=== PATIENT | female | born 1990 | race African-American/Black ===

== ENCOUNTER 2019-02-21 17:12 | Emergency (ER) | payer MEDICARE, OTHER ==
[2019-02-21 17:25] VITALS: BP 129/84; PULSE 68; TEMP 98.6; BMI 33.2
[2019-02-21] MEDS ORDERED: IBUPROFEN 400 MG TABLET (FP) PO ONE ×2 (17:40→17:49)
[2019-02-21] MEDS ORDERED: LIDOCAINE VISCOUS 2% ORAL/TOP 20 ML UNIT-DOSE CUP MM ONE (17:40)
[2019-02-21] MEDS ORDERED: LIDOCAINE VISCOUS 2% ORAL/TOP 20 ML UNIT-DOSE CUP ONE (17:49)
--- NOTE | 2019-02-21 17:53 | PDOC ---
History of Present Illness - General Chief Complaint: Toothache Stated Complaint: TOOTHACHE Time Seen by Provider: 02/21/19 17:32 History Source: Patient Exam Limitations: No Limitations Past History - Past Medical History Allergies/Adverse Reactions: Allergies Allergy/AdvReac Type Severity Reaction Status Date / Time No Known Allergies Allergy Verified 02/21/19 17:24 COPD: No - Suicide/Smoking/Psychosocial Hx Smoking History: Never smoked *Physical Exam - Vital Signs Last Vital Signs Temp Pulse Resp BP Pulse Ox 98.6 F 68 18 129/84 99 02/21/19 17:23 02/21/19 17:23 02/21/19 17:23 02/21/19 17:23 02/21/19 17:23 - Physical Exam General Appearance: No: Apparent Distress HEENT: positive: Pharynx Normal (tooth #30 with prior filling noted, slight plaque, no cavities noted, no gum swelling, no evidence of abscess), Other ( tooth #30 with prior filling noted, slight plaque, no cavities noted, no gum swelling, no evidence of abscess) Respiratory/Chest: positive: Lungs Clear, Normal Breath Sounds. negative: Respiratory Distress Cardiovascular: positive: Regular Rhythm, Regular Rate, S1, S2. negative: Murmur Medical Decision Making - Medical Decision Making 29 y/o F with no sig pmh presents with R lower molar toothache since 2 days ago. Denies trauma, fever, sore throat, abd pain, n/v. Has been using Orajel without relief of pain. Tried Motrin 600 mg once yesterday, but states it did not help much No evidence of dental injury or abscess or gingivitis Plan: Motrin, Viscous lidocaine Stable for dc 02/21/19 17:51 *DC/Admit/Observation/Transfer Diagnosis at time of Disposition: Toothache - Discharge Dispostion Disposition: HOME Condition at time of disposition: Stable Decision to Admit order: No - Referrals - Patient Instructions Printed Discharge Instructions: DI for Dental Pain Additional Instructions: Thank you for choosing [facility]. It was a pleasure taking care of you. You may take Motrin 600 mg every 6 hours by mouth as needed for mild to moderate pain. Take Motrin with food. Please follow-up in dental clinic for further evaluation of your symptoms Return to the Emergency Department if your symptoms worsen or persist or have other concerning symptoms. - Post Discharge Activity
== END 2019-02-21 19:16 | disposition home or self-care (01) ==
LOC: JERFT 17:12
DX: K08.89 Other specified disorders of teeth and supporting structures (principal)
CPT/HCPCS: 99281-25

== ENCOUNTER 2019-05-16 22:00 | Emergency (ER) | payer SELFPAY ==
[2019-05-16 22:18] VITALS: TEMP 98.1; BMI 30.2
[2019-05-16] MEDS ORDERED: KETOROLAC TROMETHAMINE 30 MG/1 ML VIAL IVPUSH ONE (22:45)
--- NOTE | 2019-05-16 22:45 | PDOC ---
History of Present Illness - General Chief Complaint: Pain, Acute Stated Complaint: ABD/BACK PAIN Time Seen by Provider: 05/16/19 22:37 - History of Present Illness Initial Comments: 05/16/19 22:40 CHIEF COMPLAINT: epigastric pain HISTORY OF PRESENT ILLNESS: 29 yo F with no PMH presents to ED with epigastric pain radiating to back x 3 days. Patient states she has been having back pain x "1 month" but the abdominal pain started 3 days ago but has worsened each day. The abdominal pain improves after eating. Patient reports nausea but denies any vomiting or diarrhea. Patient states she rarely drinks alcohol and that her last alcoholic drink was January 31. Patient's last BM was yesterday and was normal. Patient denies any fevers or chills. Denies any urinary symptoms. No recent travel or sick contacts. PAST MEDICAL HISTORY: Denies past medical history FAMILY HISTORY: mother had cholecystectomy SOCIAL HISTORY: Denies tobacco, alcohol, illicit drug use. SURGICAL HISTORY: Denies ALLERGIES: No known drug allergies REVIEW OF SYSTEMS General/Constitutional: Denies fever or chills. Denies weakness, weight change. HEENT: Denies change in vision. Denies ear pain or discharge. Denies sore throat. Cardiovascular: Denies chest pain or shortness of breath. Respiratory: Denies cough, wheezing, or hemoptysis. Gastrointestinal: Epigastric pain x 3 days. Denies vomiting, diarrhea or constipation. Denies rectal bleeding. Genitourinary: Denies dysuria, frequency, or change in urination. Musculoskeletal: Denies joint or muscle swelling or pain. Denies neck or back pain. Skin and breasts: Denies rash or easy bruising. Neurologic: Denies headache, vertigo, loss of consciousness, or loss of sensation. Psychiatric: Denies depression or anxiety. PHYSICAL EXAM General Appearance: Well-appearing, appropriately dressed. No apparent distress , no intoxication. HEENT: EOMI, PERRLA, normal ENT inspection, normal voice, TMs normal, pharynx normal. No conjunctival pallor. No photophobia, scleral icterus. Neck: Supple. Trachea midline. No tenderness, rigidity, carotid bruit, stridor , lymphadenopathy, or thyromegaly. Respiratory/Chest: Lungs CTAB. No shortness of breath, chest tenderness, respiratory distress, accessory muscle use. No crackles, rales, rhonchi, stridor , wheezing, dullness Cardiovascular: RRR. S1, S2. No JVD, murmur, bradycardia, tachycardia. Vascular Pulses: Dorsalis-Pedis (R): 2+, Dorsalis-Pedis (L): 2+ Gastrointestinal/Abdominal: Marked epigastric and RUQ tenderness. No organomegaly, pulsatile mass, guarding, hernia, hepatomegaly, splenomegaly. Lymphatic: No adenopathy, tenderness. Musculoskeletal/Extremities: Normal inspection. FROM of all extremities, normal capillary refill. Pelvis Stable. No CVA tenderness. No tenderness to extremities, pedal edema, swelling, erythema or deformity. Integumentary: Appropriate color, dry, warm. No cyanosis, erythema, jaundice or rash Neurologic: director of strategy & mobile II-XII intact. Fully oriented, alert. Appropriate mood/affect. Motor strength 5/5. No appreciable EOM palsy, facial droop or sensory deficit. Past History - Past Medical History Allergies/Adverse Reactions: Allergies Allergy/AdvReac Type Severity Reaction Status Date / Time No Known Allergies Allergy Verified 05/16/19 22:17 COPD: No - Suicide/Smoking/Psychosocial Hx Smoking History: Unknown if ever smoked *Physical Exam - Vital Signs Last Vital Signs Temp Pulse Resp BP Pulse Ox 98.1 F 88 18 116/77 100 05/16/19 22:17 05/16/19 22:17 05/16/19 22:17 05/16/19 22:17 05/16/19 22:17 Medical Decision Making - Medical Decision Making 05/16/19 22:45 29 yo F with no PMH presents to ED with epigastric pain radiating to back x 3 days. -labs, urine, CTAP -toradol for pain control 05/16/19 23:42 Case discussed in detail with resident MD Wilks including history, physical exam and ancillary studies. In brief, this patient is being seen in the ED for a chief complaint of: epigastric pain I have completed the initial assessment interview note and have ordered the following labs: cbc, cmp, lipase, urine I have reviewed the following results: nothing Pending results: labs, CTAP Plan for disposition as follows: pending MD Wilks has assumed care for the patient and will complete the evaluation and treatment.
[2019-05-17 00:21] LABS: HEMOGLOBIN 12.4 GM/dL (10.7-15.3); LYMPH % 24.9 % (8-40); MEAN CELL VOLUME 85.2 fl (80-96)
[2019-05-17 00:25] LABS: HYALINE CASTS 4 /lpf (0-8); URINE APPEARANCE CLOUDY; URINE BACTERIA 67.9 /hpf (NEGATIVE); URINE BILIRUBIN NEGATIVE (NEGATIVE); URINE COLOR YELLOW; URINE GLUCOSE (UA) NEGATIVE (NEGATIVE); URINE KETONE NEGATIVE (NEGATIVE); URINE LEUK ESTERASE TRACE (NEGATIVE); URINE NITRITE NEGATIVE (NEGATIVE); URINE PROTEIN NEGATIVE (NEGATIVE); URINE RBC 1 /hpf (0-4); URINE WBC 6 /hpf (0-5)
[2019-05-17 00:26] LABS: BASO % 0.6 % (0-2.0); HEMATOCRIT 37.8 % (32.4-45.2); MCH 27.9 pg (25.7-33.7); MCHC 32.7 g/dl (32.0-36.0); MEAN PLT VOLUME 9.7 fl (7.5-11.1); MONO % 6.8 % (3.8-10.2); NEUT % 66.7 % (42.8-82.8); PLATELET COUNT 258 K/MM3 (134-434); RBC 4.43 M/mm3 (3.60-5.2); RDW 13.9 % (11.6-15.6); WHITE BLOOD COUNT 7.9 K/mm3 (4.0-10.0)
[2019-05-17] MEDS ORDERED: KETOROLAC TROMETHAMINE 15 MG/ML VIAL ONE (00:32)
[2019-05-17 01:07] LABS: ALBUMIN 3.6 g/dl (3.4-5.0); BILIRUBIN,TOTAL 0.4 mg/dL (0.2-1); BLOOD UREA NITROGEN 8.9 mg/dL (7-18); POTASSIUM 3.8 mmol/L (3.5-5.1); TOT PROT 6.8 g/dl (6.4-8.2)
--- NOTE | 2019-05-17 02:40 | PDOC ---
*Physical Exam - Vital Signs Last Vital Signs Temp Pulse Resp BP Pulse Ox 98.1 F 88 18 116/77 100 05/16/19 22:17 05/16/19 22:17 05/16/19 22:17 05/16/19 22:17 05/16/19 22:17 ED Treatment Course - LABORATORY CBC & Chemistry Diagram: 05/17/19 00:00 05/17/19 00:00 - ADDITIONAL ORDERS Additional order review: Laboratory Results 05/17/19 05/17/19 05/17/19 00:00 00:00 00:00 Sodium Potassium Chloride Carbon Dioxide Anion Gap BUN Creatinine Est GFR (CKD-EPI)AfAm Est GFR (CKD-EPI)NonAf Random Glucose Calcium Total Bilirubin AST ALT Alkaline Phosphatase Total Protein Albumin Lipase 143 Urine Color Yellow Urine Appearance Cloudy Urine pH 6.0 Ur Specific Institute 1.015 Urine Protein Negative Urine Glucose (UA) Negative Urine Ketones Negative Urine Blood Negative Urine Nitrite Negative Urine Bilirubin Negative Urine Urobilinogen 1.0 Ur Leukocyte Esterase Trace Urine WBC (Auto) 6 Urine RBC (Auto) 1 Urine Casts (Auto) 4 U Epithel Cells (Auto) 7.0 Urine Bacteria (Auto) 67.9 Urine HCG, Qual Negative 05/17/19 00:00 Sodium 140 Potassium 3.8 Chloride 104 Carbon Dioxide 31 Anion Gap 5 L BUN 8.9 Creatinine 1.0 Est GFR (CKD-EPI)AfAm 87.55 Est GFR (CKD-EPI)NonAf 75.54 Random Glucose 93 Calcium 9.0 Total Bilirubin 0.4 AST 13 L ALT 17 Alkaline Phosphatase 61 Total Protein 6.8 Albumin 3.6 Lipase Urine Color Urine Appearance Urine pH Ur Specific Institute Urine Protein Urine Glucose (UA) Urine Ketones Urine Blood Urine Nitrite Urine Bilirubin Urine Urobilinogen Ur Leukocyte Esterase Urine WBC (Auto) Urine RBC (Auto) Urine Casts (Auto) U Epithel Cells (Auto) Urine Bacteria (Auto) Urine HCG, Qual 05/17/19 00:00 RBC 4.43 MCV 85.2 MCHC 32.7 RDW 13.9 MPV 9.7 Neutrophils % 66.7 Lymphocytes % 24.9 Monocytes % 6.8 Eosinophils % 1.0 Basophils % 0.6 - Medications Given in the ED: ED Medications Discontinued Medications Generic Name Dose Route Start Last Admin Trade Name Freq PRN Reason Stop Dose Admin Ketorolac Tromethamine 15 mg 05/16/19 22:45 05/17/19 00:40 Toradol Injection - IVPUSH 05/16/19 22:46 15 mg ONCE ONE Administration Medical Decision Making - Medical Decision Making 05/17/19 02:40 ct read: No bowel obstruction, colitis or free air. Normal appendix. Unremarkable stomach, liver, spleen, pancreas and kidneys Cholelithiasis Small physiologic free fluid cul-de-sac. 2.7 cm left ovarian cyst 05/17/19 02:46 ok to discharge with surgical referral. *DC/Admit/Observation/Transfer Diagnosis at time of Disposition: Biliary colic - Discharge Dispostion Disposition: HOME Condition at time of disposition: Improved Decision to Admit order: No - Referrals Referrals: Cheko Raymond MD [Staff Physician] - Jaiden Hawk MD [Staff Physician] - Thad Alberto MD [Staff Physician] - - Patient Instructions Printed Discharge Instructions: DI for Gallstones Additional Instructions: Follow up with one of the surgery providers listed within the week. Come back to the emergency department for any new, worsening or concerning symptom. - Post Discharge Activity
[2019-05-17 02:53] VITALS: BP 161/62; PULSE 79
== END 2019-05-17 02:53 | disposition home or self-care (01) ==
LOC: JER 22:00
PROC: 3E0333Z Introduction of Anti-inflammatory into Peripheral Vein, Percutaneous Approach (ICD-10-PCS; principal; 2019-05-16)
DX: K80.20 Calculus of gallbladder without cholecystitis without obstruction (principal); N83.202 Unspecified ovarian cyst, left side
CPT/HCPCS: 36415; 74177-TC; 80053; 81003; 83690; 84703; 85025; 87086; 99283-25

== ENCOUNTER 2020-03-28 05:32 | Emergency (ER) | payer OTHER ==
--- NOTE | 2020-03-28 05:44 | PDOC ---
History of Present Illness - General Stated Complaint: ABD PAIN,13 WKS - History of Present Illness Initial Comments: 03/28/20 06:08 30yo F and no other PMH p/w severe abdominal pain in the epigastric region that moves to the back. This started at 0100 an hour after intercourse and after eating [place] for dinner.The pain is intermittent and at its worst is 10/10. She has not taken anything for the pain. She has a history of gallstones. She did not followup after receiving the diagnosis. She underwent routine sonogram last week, and she reports it was normal. No allergies no meds ROS CONSTITUTIONAL: Absent: fever, chills, recent illness CARDIOVASCULAR: Absent: chest pain, syncope RESPIRATORY: Absent: cough, shortness of breath GASTROINTESTINAL: Absent: diarrhea, constipation, kGENITOURINARY: Absent: dysuria, frequency, urgency, hesitancy, hematuria, flank pain, genital pain MUSCULOSKELETAL: Absent: myalgia, arthralgia, joint swelling SKIN: Absent: rash, : reported LMP was 12/2019. Denies vaginal discharge or bleeding. NEUROLOGIC: Absent: headache, focal weakness or paresthesias, dizziness, unsteady gait, PSYCHIATRIC: Absent: anxiety, depression, suicidal or homicidal ideation, hallucinations. PE GENERAL: Well developed, well nourished. Awake and alert. in moderate distress due to the ABD pain HEENT: Normocephalic, atraumatic. PERRLA, EOMI. No conjunctival pallor. Sclera are non- icteric. Moist mucous membranes. Oropharynx is clear. NECK: Supple. Full ROM. No JVD. No thyromegaly. No lymphadenopathy. CARDIOVASCULAR: Regular rate and rhythm. No murmurs, rubs, or gallops. Distal pulses are 2+ and symmetric. PULMONARY: No evidence of respiratory distress. Lungs clear to auscultation bilaterally. No wheezing, rales or rhonchi. ABDOMINAL: Guarded in the epigastrum and RUQ. nontender and soft in the RLQ, hypogastrum, and LLQ. MUSCULOSKELETAL Normal range of motion at all joints. No bony deformities or tenderness. Diffuse mid-back tenderness to percussioin. EXTREMITIES: No cyanosis. SKIN: Warm and dry. Normal capillary refill. No rashes. No jaundice. NEUROLOGICAL: Alert, awake, appropriate. PSYCHIATRIC: Cooperative. Good eye contact. Appropriate mood and affect. Distressed because of the pain. : sonogram of belly showed + heart rate and + motion. a/p: 30yo F w/ h/o of gallstones and [place] for dinner and + p/w intermittent RUQ and epigastric pain. W/u for Gallstones/cholecystitis -> US study of RUQ, CMP, CBC, pain control. 03/28/20 06:19 03/28/20 06:23 03/28/20 06:39 03/28/20 06:44 Past History - Medical History Allergies/Adverse Reactions: Allergies Allergy/AdvReac Type Severity Reaction Status Date / Time No Known Allergies Allergy Verified 05/16/19 22:17 Home Medications: Ambulatory Orders NK [No Known Home Medication] 05/17/19 COPD: No - Psycho-Social/Smoking History Smoking History: Unknown if ever smoked ED Treatment Course - LABORATORY CBC & Chemistry Diagram: 03/28/20 06:00 03/28/20 06:00 Discharge - Discharge Information Problems reviewed: Yes Clinical Impression/Diagnosis: RUQ pain, Cholecystitis, Biliary colic Qualifiers: Weeks of gestation: 13 weeks Qualified Code(s): Z3A.13 - 13 weeks gestation of - Follow up/Referral - Patient Discharge Instructions - Post Discharge Activity
--- NOTE | 2020-03-28 05:45 | PDOC ---
Attending Attestation - Resident Resident Name: Haja Tellez - ED Attending Attestation I have performed the following: I have examined & evaluated the patient, The case was reviewed & discussed with the resident, I agree w/resident's findings & plan - HPI HPI: 03/28/20 06:25 see resident hpi - Physicial Exam PE: 03/28/20 06:25 see resident exam - Medical Decision Making 03/28/20 06:25 30-year-old female currently 13 weeks gestational age with upper abdominal pain radiating to the back several hours after eating [place] [employer] Bedside ultrasound confirms a live IUP and likely cholelithiasis We will sign out pending labs, formal ultrasound and reevaluation Discharge - Discharge Information Problems reviewed: Yes Clinical Impression/Diagnosis: RUQ pain, - Follow up/Referral - Patient Discharge Instructions - Post Discharge Activity
[2020-03-28 05:48] VITALS: BMI 33.4
[2020-03-28] MEDS ORDERED: morphine CARPU-JECT 4 MG/1 ML DISP.SYRIN IM ONE (05:56)
[2020-03-28] MEDS ORDERED: morphine SULFATE 4 MG/ML VIAL ONE (06:00)
[2020-03-28] MEDS ORDERED: LACTATED RINGERS SOLUTION 1000 ML INFUS.BAG IV ONE (06:01)
[2020-03-28] MEDS ORDERED: morphine CARPU-JECT 4 MG/1 ML DISP.SYRIN IVPUSH ONE (06:08)
[2020-03-28 06:30] LABS: BASO % 0.3 % (0-2.0); EOS % 0.5 % (0-4.5); HEMOGLOBIN 12.3 GM/dL (10.7-15.3); LYMPH % 19.2 % (8-40); MCH 27.5 pg (25.7-33.7); MCHC 33.3 g/dl (32.0-36.0); MEAN CELL VOLUME 82.5 fl (80-96); MEAN PLT VOLUME 9.4 fl (7.5-11.1); PLATELET COUNT 233 K/MM3 (134-434); RBC 4.49 M/mm3 (3.60-5.2); RDW 13.7 % (11.6-15.6); WHITE BLOOD COUNT 9.8 K/mm3 (4.0-10.0)
[2020-03-28] MEDS ORDERED: METOCLOPRAMIDE HCL 10 MG TABLET (FP) PO ONE ×2 (06:36→06:43)
[2020-03-28 06:42] LABS: INR 0.96 (0.83-1.09); PROTHROMBIN TIME (PATIENT) 11.3 SEC (9.7-13.0)
[2020-03-28 06:45] LABS: ACTIVATED PTT 29.2 SECONDS (25.2-36.5)
[2020-03-28 06:52] LABS: ALBUMIN 3.4 g/dl (3.4-5.0); BILIRUBIN,TOTAL 0.3 mg/dL (0.2-1); CALCIUM 9.1 mg/dL (8.5-10.1); CREATININE 0.8 mg/dL (0.55-1.3); POTASSIUM 3.8 mmol/L (3.5-5.1)
--- NOTE | 2020-03-28 07:12 | PDOC ---
*Physical Exam - Vital Signs Last Vital Signs Temp Pulse Resp BP Pulse Ox 98.2 F 88 20 133/81 100 03/28/20 05:43 03/28/20 05:43 03/28/20 05:43 03/28/20 05:43 03/28/20 05:43 - Physical Exam 03/28/20 20:48 GENERAL: Well developed, well nourished. Awake and alert. in no distress HEENT: Normocephalic, atraumatic. EOMI. No conjunctival pallor. Sclera are non- icteric. Moist mucous membranes. NECK: Supple. Full ROM. No JVD. No thyromegaly. No lymphadenopathy. CARDIOVASCULAR: Regular rate and rhythm. No murmurs, rubs, or gallops. Distal pulses are 2+ and symmetric. PULMONARY: No evidence of respiratory distress. Lungs clear to auscultation bilaterally. No wheezing, rales or rhonchi. ABDOMINAL: No tenderness to palpation in all four quadrants MUSCULOSKELETAL Normal range of motion at all joints. EXTREMITIES: No cyanosis. SKIN: Warm and dry. Normal capillary refill. No rashes. No jaundice. NEUROLOGICAL: Alert, awake, appropriate. PSYCHIATRIC: Cooperative. Good eye contact. Appropriate mood and affect. ED Treatment Course - LABORATORY CBC & Chemistry Diagram: 03/28/20 06:00 03/28/20 06:00 - ADDITIONAL ORDERS Additional order review: Laboratory Results 03/28/20 03/28/20 06:00 06:00 PT with INR 11.30 INR 0.96 PTT (Actin FS) 29.2 Sodium 137 Potassium 3.8 Chloride 105 Carbon Dioxide 24 Anion Gap 8 BUN 6.0 L Creatinine 0.8 Est GFR (CKD-EPI)AfAm 113.86 Est GFR (CKD-EPI)NonAf 98.24 Random Glucose 117 H Calcium 9.1 Total Bilirubin 0.3 AST 24 ALT 54 Alkaline Phosphatase 56 Total Protein 7.0 Albumin 3.4 03/28/20 06:00 RBC 4.49 MCV 82.5 MCHC 33.3 RDW 13.7 MPV 9.4 Neutrophils % 75.0 Lymphocytes % 19.2 D Monocytes % 5.0 Eosinophils % 0.5 Basophils % 0.3 - Medications Given in the ED: ED Medications Discontinued Medications Generic Name Dose Route Start Last Admin Trade Name Freq PRN Reason Stop Dose Admin Lactated Ringer's 1,000 ml 03/28/20 06:01 03/28/20 06:27 Lactated Ringers Solution IV 03/28/20 06:02 1,000 ml ONCE ONE Administration Metoclopramide HCl 10 mg 03/28/20 06:36 03/28/20 06:48 Reglan - PO 03/28/20 06:37 10 mg ONCE ONE Administration Morphine Sulfate 4 mg 03/28/20 05:56 03/28/20 06:27 Morphine Injection - IM 03/28/20 05:57 Not Given ONCE ONE Morphine Sulfate 4 mg 03/28/20 06:08 03/28/20 06:28 Morphine Injection - IVPUSH 03/28/20 06:09 4 mg ONCE ONE Administration Medical Decision Making - Medical Decision Making 03/28/20 07:10 30 yo female with pmh of gallstones 13 weeks presents to ED for RUQ pain after eating [place]. Pt received POCUS at bedside showed gallstone and baby was alive and kicking. Pt was given morphine, LR, and regalon. Pt went to get formal ultrasound waiting for read and dispo. Pt after ultrasound expressed felt alot better pain at 10. Ultrasound was read showing cholelithiasis and no blockage. Pt felt better, was able to tolerate PO challenge, and wanted to go home. Pt was discharged on strict return precaution to return to ED if pt had any fevers, chills, worsening abdominal pain, or unable to eat anything by mouth. Pt was told to follow up with OBGYN Dr. Serna (her obgyn) and surgery in the next few days. Pt was also told to take tylenol for pain and to eat low fat foods. Pt agreed to plan and was discharged. Discharge - Discharge Information Problems reviewed: Yes Clinical Impression/Diagnosis: RUQ pain, Cholecystitis, Biliary colic Qualifiers: Weeks of gestation: 13 weeks Qualified Code(s): Z3A.13 - 13 weeks gestation of Condition: Improved Disposition: HOME - Follow up/Referral Referrals: Olayinka Chaidez MD [Staff Physician] - - Patient Discharge Instructions Patient Printed Discharge Instructions: Gallstones Additional Instructions: You came to the ED for abdominal pain. This is most likely due to your gallstones. At the ED we did labs and imaging. The labs showed no acute abnormalities. The imaging showed some stones in your gallbladder but no inflammation or no blockage. In the ED we also gave you fluids, morphine, and antinausea medication. For this gallstones please follow up with surgery who we referred you to your OBGYN within one week. For the pain please take Tylenol 325-1000mg every 6 hours but no more than 4000 mg in 24 hours If you have any of the following symptoms please return: - worsening abdominal pain - fevers or chills - unable to eat anything by mouth - shortness of breath or chest pain If you have any emergent symptoms please call for medical help right away. - Post Discharge Activity
[2020-03-28 11:27] VITALS: BP 114/78; PULSE 69; TEMP 98.3
== END 2020-03-28 12:08 | disposition home or self-care (01) ==
LOC: JER 05:32
PROC: 3E033NZ Introduction of Analgesics, Hypnotics, Sedatives into Peripheral Vein, Percutaneous Approach (ICD-10-PCS; principal; 2020-03-28)
PROC: 3E0233Z Introduction of Anti-inflammatory into Muscle, Percutaneous Approach (ICD-10-PCS; 2020-03-28)
DX: O26.619 Liver and biliary tract disorders in pregnancy, unspecified trimester (principal); R10.11 Right upper quadrant pain; Z3A.13 13 weeks gestation of pregnancy
CPT/HCPCS: 36415; 76705-TC; 76801-TC; 80053; 83690; 84702; 85025; 85610; 85730; 86850; 86900; 86901; 99285-25; U0003

== ENCOUNTER 2020-06-09 13:54 | Emergency (ER) | payer OTHER ==
[2020-06-09 14:00] VITALS: BP 122/67; PULSE 98; TEMP 98.1; BMI 33.6
--- OUTSIDE RECORDS SUMMARY | 2020-06-09 14:14 | XMS ---
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 If such information is present, then the following federally mandated warning applies: This information has been disclosed to you from records protected by federal confidentiality rules (42 CFR part 2). The federal rules prohibit you from making any further disclosure of this information unless further disclosure is expressly permitted by the written consent of the person to whom it pertains or as otherwise permitted by 42 CFR part 2. A general authorization for the release of medical or other information is NOT sufficient for this purpose. The Federal rules restrict any use of the information to criminally investigate or prosecute any alcohol or drug abuse patient.The records that you are about to access may contain highly sensitive health information, the redisclosure of which is protected by Article 27-F of the [facility] Public Health law. If you continue you may haveaccess to information: Regarding HIV / AIDS; Provided by facilities licensed or operated by the [facility] Office of Mental Health; or Provided by the [facility] Office for People With Developmental Disabilities. If such information is present, then the following [facility] mandated warning applies: This information has been disclosed to you from confidential records which are protected by state law. State law prohibits you from making any further disclosure of this information without the specific written consent of the person to whom it pertains, or as otherwise permitted by law. Any unauthorized further disclosure in violation of state law may result in a fine or fpc sentence or both. A general authorization for the release of medical or other information is NOT sufficient authorization for further disclosure. Encounters Encounter Providers Location Date Indications Data Source(s ) Emergency H 05/17/2019 10:45:00 [facility] EDT - 05/17/2019 [place] 01:51:00 PM EDT Patient discharged. Insurance Providers Payer name Policy type Policy ID Covered Covered constitution party's Policy P judson / Coverage constitution party ID relationship to [employer] ormation type barrientos MARIELA [id number] SP [id number] HEALTH NON CAP SELF PAY SP INSURANCE MARIELA W [id number] MARIELA [id number] SP [id number] MEDICARE ADV PLAN Medicaid [id number] S [id number] Regular Clinic Visit HIP Medicaid [id number] S [id number] Managed Care Problems, Conditions, and Diagnoses Code Display Name Description Problem Type Effective Data Dates Source(s) K80.80 Other OTHER Diagnosis 05/17/2019 [facility] cholelithiasis CHOLELITHIASIS 10:45:00 AM Medic al without obstruction WITHOUT OBSTRUCTION EDT Center R10.9 Unspecified UNSPECIFIED Diagnosis 05/17/2019 [facility] abdominal pain ABDOMINAL PAIN 10:45:00 AM Medic al EDT Center Results ID Date Data Source [id number] 03/28/2020 06:45:00 AM EDT [facility] Name Value Range Interpretation Description Data Sup porting Code Source(s) Document(s ) SARS [facility] coronavirus 2 RNA This lab was ordered by [facility] and reported by [facility]. ID Date Data Source Liver 05/17/2019 11:25:00 AM EDT [facility] Profile.[id number] Name Value Range Interpretation Description Data Sup porting Code Source(s) Document(s ) Aspartate 14-36 <content [facility] aminotransferase styleCode="Bold"> [facility]uf[facility] hs [Enzymatic Aspartate Medical activity/volume] Aminotransferase Center in Serum or Plasma (AST) </content>22 IU/L<content styleCode="Italic s"> (14-36 IU/L)</content> Alanine 7-30 <content [facility] aminotransferase styleCode="Bold"> [facility] hs [Enzymatic Alanine Medical activity/volume] Aminotransferase Center in Serum or Plasma (ALT) </content>16 IU/L<content styleCode="Italic s"> (7-30 IU/L)</content> Bilirubin.total 0.2-1.3 <content [facility] [Mass/volume] in styleCode="Bold"> [facility] hs Serum or Plasma Bilirubin Total Medical </content>0.6 Center MG/DL<content styleCode="Italic s"> (0.2-1.3 MG/DL)</content> UNK 0.0-0.3 <content [facility] styleCode="Bold"> Tori Bilirubin, Direct Medical </content>< 0.2 Center MG/DL<content styleCode="Italic s"> (0.0-0.3 MG/DL)</content> Alkaline 38-126 <content [facility] phosphatase styleCode="Bold"> Tori [Enzymatic Alkaline Medical activity/volume] Phosphatase (ALP) Cente r in Serum or Plasma </content>61 IU/L<content styleCode="Italic s"> (38-126 IU/L)</content> Albumin 3.5-5.0 <content [facility] [Mass/volume] in styleCode="Bold"> Rufus hs Serum or Plasma Albumin Medical </content>4.1 Center G/DL<content styleCode="Italic s"> (3.5-5.0 G/DL)</content> ID Date Data Source GFR(Creatinine).[id number] 05/17/2019 11:25:00 AM EDT [facility] 0-0400 Name Value Range Interpretation Code Description Data Flory rce(s) Supporting Document(s ) UNK > 60 <content [facility] styleCode="Bold"> Medical Cent er EGFR </content>108 GFR<content styleCode="Italic s"> (> 60 GFR)</content> ID Date Data Source CHMROUTINECCDA.[id number] 05/17/2019 11:25:00 AM EDT [facility] -0400 Name Value Range Interpretation Description Data Sup porting Code Source(s) Document(s ) UNK 30-110 <content [facility] styleCode="Bold Medical ">Amylase Center </content>64 IU/L<content styleCode="Ital ics"> (30-110 IU/L)</content> Lipase 23-300 <content [facility] [Enzymatic styleCode="Bold Medical activity/vo ">Lipase Center lume] in </content>90 Serum or IU/L<content Plasma styleCode="Ital ics"> (23-300 IU/L)</content> ID Date Data Source [facility].[id number] 05/17/2019 11:25:00 AM EDT [facility] Name Value Range Interpretation Description Data Sup porting Code Source(s) Document(s ) UNK 7-17 <content [facility] styleCode="Bold"> Tori BUN </content>9 Medical MG/DL<content Center styleCode="Italic s"> (7-17 MG/DL)</content> Potassium 3.5-5.3 <content [facility] [Moles/volume] in styleCode="Bold"> [facility] Serum or Plasma Potassium Medical </content>4.0 Center MEQ/L<content styleCode="Italic s"> (3.5-5.3 MEQ/L)</content> Sodium 137-145 <content [facility] [Moles/volume] in styleCode="Bold"> [facility] Serum or Plasma Sodium Medical </content>141 Center MEQ/L<content styleCode="Italic s"> (137-145 MEQ/L)</content> Chloride 98-107 <content [facility] [Moles/volume] in styleCode="Bold"> [facility] Serum or Plasma Chloride Medical </content>104 Center MEQ/L<content styleCode="Italic s"> (98-107 MEQ/L)</content> Carbon dioxide, 22-30 <content [facility] total styleCode="Bold"> Tori [Moles/volume] in Carbon Dioxide Medical Serum or Plasma </content>28 Center MEQ/L<content styleCode="Italic s"> (22-30 MEQ/L)</content> Alanine 7-30 <content [facility] aminotransferase styleCode="Bold"> [facility] hs [Enzymatic Alanine Medical activity/volume] Aminotransferase Center in Serum or Plasma (ALT) </content>16 IU/L<content styleCode="Italic s"> (7-30 IU/L)</content> Calcium 8.4-10. <content [facility] [Mass/volume] in 2 styleCode="Bold"> [facility] hs Serum or Plasma Calcium Medical </content>9.8 Center MG/DL<content styleCode="Italic s"> (8.4-10.2 MG/DL)</content> Aspartate 14-36 <content [facility] aminotransferase styleCode="Bold"> [facility] hs [Enzymatic Aspartate Medical activity/volume] Aminotransferase Center in Serum or Plasma (AST) </content>22 IU/L<content styleCode="Italic s"> (14-36 IU/L)</content> UNK > 60 <content [facility] styleCode="Bold"> Tori EGFR Medical </content>108 Center GFR<content styleCode="Italic s"> (> 60 GFR)</content> Glucose 74-106 <content [facility] [Mass/volume] in styleCode="Bold"> [facility] hs Serum or Plasma Glucose Medical </content>104 Center MG/DL<content styleCode="Italic s"> (74-106 MG/DL)</content> Creatinine 0.5-1.3 <content [facility] [Mass/volume] in styleCode="Bold"> [facility] hs Serum or Plasma Creatinine Medical </content>0.8 Center MG/DL<content styleCode="Italic s"> (0.5-1.3 MG/DL)</content> Albumin 3.5-5.0 <content [facility] [Mass/volume] in styleCode="Bold"> [facility] hs Serum or Plasma Albumin Medical </content>4.1 Center G/DL<content styleCode="Italic s"> (3.5-5.0 G/DL)</content> Alkaline 38-126 <content [facility] phosphatase styleCode="Bold"> Tori [Enzymatic Alkaline Medical activity/volume] Phosphatase (ALP) Cente r in Serum or Plasma </content>61 IU/L<content styleCode="Italic s"> (38-126 IU/L)</content> Bilirubin.total 0.2-1.3 <content [facility] [Mass/volume] in styleCode="Bold"> [facility] hs Serum or Plasma Bilirubin Total Medical </content>0.6 Center MG/DL<content styleCode="Italic s"> (0.2-1.3 MG/DL)</content> Procedure Social History Code Duration Value Status Description Data Source(s ) Smoking 05/17/2019 11:08:00 AM Not Known [facility] 05/17/2019 10:53:00 AM Not Known [facility] Known [facility] Vital Signs ID Date Data Source UNK Name Value Range Interpretation Code Description Data Source(s) Body temperature [id number] 36.471897 [facility] Respiratory rate 20 /min 20 /min [facility] Oxygen saturation 98 % 98 % [facility] Jesús pittman in Arterial blood Medical Center by Pulse oximetry Heart rate 89 /min 89 /min [facility] Diastolic blood 63 mm[Hg] 63 mm[Hg] [facility] pressure Medical Center Systolic blood 105 mm[Hg] 105 mm[Hg] [facility] pressure [facility]
--- NOTE | 2020-06-09 14:26 | PDOC ---
History of Present Illness - General Chief Complaint: Injury Stated Complaint: INJURY Time Seen by Provider: 06/09/20 14:06 History Source: Patient Exam Limitations: Clinical Condition - History of Present Illness Initial Comments: 06/09/20 14:00 Patient with no significant past medical history present with complaint of laceration to left thumb to fingernail status post accidentally cutting left finger with a cooking knife after being distracted by her children. Patient reported has some mild bleeding to the area which she covered with bandage which has stopped bleeding. Reported last tetanus vaccine 5 years ago. Denies numbness or tingling sensation to fingers. Denies any other symptoms Timing/Duration: reports: just prior to arrival Past History - Medical History Allergies/Adverse Reactions: Allergies Allergy/AdvReac Type Severity Reaction Status Date / Time No Known Allergies Allergy Verified 06/09/20 13:57 Home Medications: Ambulatory Orders NK [No Known Home Medication] 05/17/19 COPD: No - Reproductive History Is Patient Now?: Yes (#): 4 Para: 1 Spontaneous : 2 - Immunization History Immunization Up to Date: Yes - Psycho-Social/Smoking History Smoking History: Never smoked Have you smoked in the past 12 months: No If you are a former smoker, when did you quit?: 2017 - Substance Abuse Hx (Audit-C & DAST Scrn) How often the patient has a drink containing alcohol: Never Score: In Men: 4 or > Positive; In Women: 3 or > Positive: 0 Screen Result (Pos requires Nsg. Audit-10AR): Negative In the last yr the pt used illegal drug/Rx for NonMed reason: No Score: Yes response is considered Positive: 0 Screen Result (Positive result requires Nsg. DAST-10): Negative Review of Systems - Review of Systems Able to Perform ROS?: Yes Is the patient limited Icelandic proficient: No Constitutional: No: Chills, Fever, Malaise HEENTM: No: Symptoms Reported Respiratory: No: Symptoms reported Cardiac (ROS): No: Symptoms Reported Musculoskeletal: Yes: Symptoms Reported, See HPI, Muscle Pain (pain to left thumb) Integumentary: Yes: Symptoms Reported, See HPI, Other (laceration to left thumb) Neurological: No: Numbness, Paresthesia, Tingling, Weakness All Other Systems: Reviewed and Negative *Physical Exam - Vital Signs Last Vital Signs Temp Pulse Resp BP Pulse Ox 98.1 F 98 H 18 122/67 98 06/09/20 13:57 06/09/20 13:57 06/09/20 13:57 06/09/20 13:57 06/09/20 13:57 - Physical Exam 06/09/20 15:03 GENERAL: Well developed, well nourished. Awake and alert. No acute distress. PULMONARY: No evidence of respiratory distress. MUSCULOSKELETAL : mild tenderness over distal phalange of the nailbed of left thumb. 5 out of 5 strength to the left thumb. Full range of motion of left thumb. No bony deformities SKIN: Warm and dry. Normal capillary refill. 2 mm superficial laceration to the nailbed on the medial side of left thumb with no active bleeding. Full range of motion left thumb. Normal strength of left thumb NEUROLOGICAL: Alert, awake, appropriate. No motor deficits in the lower extremities. Gait is normal without ataxia. PSYCHIATRIC: Cooperative. Good eye contact. Appropriate mood and affect. General Appearance: Yes: Nourished, Appropriately Dressed. No: Apparent Distress Medical Decision Making - Medical Decision Making 06/09/20 14:01 Patient with no significant past medical history present with complaint of laceration to left thumb to fingernail status post accidentally cutting left finger with a cooking knife after being distracted by her children. Patient reported has some mild bleeding to the area which she covered with bandage which has stopped bleeding. Reported last tetanus vaccine 5 years ago. Denies numbness or tingling sensation to fingers. Denies any other symptoms Exam significant for 2 mm superficial laceration to the nailbed on the medial side of left thumb with no active bleeding. Full range of motion left thumb. Normal strength of left thumb. Wound cleaned with Betadine and reinforced with Dermabond. Wound covered with adhesive bandage. Right thumb covered with tubular straight gauze to help protect finger. Patient stable for discharge with advised to do topical Neosporin or bacitracin to wound twice a day as needed and take Motrin as needed for pain with PCP follow-up Discharge - Discharge Information Problems reviewed: Yes Clinical Impression/Diagnosis: Laceration of left thumb with damage to nail Qualifiers: Encounter type: initial encounter Foreign body presence: without foreign body Qualified Code(s): S61.112A - Laceration without foreign body of left thumb with damage to nail, initial encounter Condition: Stable Disposition: HOME - Admission No - Follow up/Referral - Patient Discharge Instructions Patient Printed Discharge Instructions: DI for Laceration Repair-Skin Glue Additional Instructions: Keep wound dry and clean for the next 24 hours. Remove gauze from wound in 3 days and apply bacitracin or Neosporin to wound twice a day until fully healed. Take Motrin as needed for pain. Follow with your primary care as needed - Post Discharge Activity
== END 2020-06-09 14:29 | disposition home or self-care (01) ==
LOC: JERFT 13:54
DX: S61.112A Laceration without foreign body of left thumb with damage to nail, initial encounter (principal)
CPT/HCPCS: 99282-25

== ENCOUNTER 2020-09-25 07:10 | Inpatient (IN) | payer OTHER ==
[2020-09-25 08:58] LABS: BASO % 0.2 % (0-2.0); EOS % 0.9 % (0-4.5); HEMATOCRIT 35.4 % (32.4-45.2); HEMOGLOBIN 11.8 GM/dL (10.7-15.3); LYMPH % 22.4 % (8-40); MCH 27.4 pg (25.7-33.7); MCHC 33.5 g/dl (32.0-36.0); MEAN CELL VOLUME 81.9 fl (80-96); MEAN PLT VOLUME 9.3 fl (7.5-11.1); MONO % 8.7 % (3.8-10.2); NEUT % 67.8 % (42.8-82.8); PLATELET COUNT 231 K/MM3 (134-434); RBC 4.32 M/mm3 (3.60-5.2); WHITE BLOOD COUNT 6.6 K/mm3 (4.0-10.0)
[2020-09-25 09:13] LABS: POTASSIUM 3.8 mmol/L (3.5-5.1)
[2020-09-25 09:15] LABS: BLOOD UREA NITROGEN 5.3 mg/dL (7-18)
[2020-09-25 09:19] LABS: CREATININE 0.8 mg/dL (0.55-1.3); INR 0.93 (0.83-1.09); PROTHROMBIN TIME (PATIENT) 11.5 SEC (9.7-13.0)
[2020-09-25 09:21] LABS: ACTIVATED PTT 26.8 SECONDS (25.2-36.5)
[2020-09-25 09:36] VITALS: BMI 36.3
[2020-09-25] MEDS ORDERED: CITRIC ACID/SODIUM CITRATE 30 ML UNIT-DOSE CUP PO ONE (09:58)
[2020-09-25] MEDS ORDERED: ELECTROLYTE-148 SOLN 1,000 ML IV SCH (10:00)
[2020-09-25] MEDS ORDERED: ONDANSETRON 4 MG/2 ML VIAL IVPUSH PRN (10:23)
[2020-09-25] MEDS ORDERED: morphine SULFATE/PF 0.5 MG/ML (2cc Syringe - QUVA) ONE (10:42)
[2020-09-25] MEDS ORDERED: IBUPROFEN 600 MG TABLET (FP) PO PRN (11:33)
[2020-09-25] MEDS ORDERED: oxyCODONE HCL 5 MG TABLET PO PRN (11:33)
[2020-09-25] MEDS ORDERED: ACETAMINOPHEN 325 MG TABLET (FP) PO PRN (11:33)
[2020-09-25] MEDS ORDERED: METHYLERGONOVINE MALEATE 0.2 MG/1 ML AMP IM PRN (11:33)
[2020-09-25] MEDS ORDERED: IBUPROFEN 800 MG/8 ML IJ IVPB PRN (11:33)
[2020-09-25] MEDS ORDERED: OXYTOCIN 20 UNITS in 0.9% NS 20 UNIT/1,000 ML INFUS.BAG IV SCH (11:45)
[2020-09-25] MEDS: FERROUS SO4 325 MG TABLET (FP) PO SCH (18:39)
[2020-09-26 08:35] LABS: BASO % 0.9 % (0-2.0); EOS % 0.3 % (0-4.5); HEMATOCRIT 35.3 % (32.4-45.2); HEMOGLOBIN 11.6 GM/dL (10.7-15.3); LYMPH % 18.3 % (8-40); MCH 26.9 pg (25.7-33.7); MCHC 32.9 g/dl (32.0-36.0); MEAN CELL VOLUME 81.9 fl (80-96); MEAN PLT VOLUME 9.2 fl (7.5-11.1); MONO % 8.4 % (3.8-10.2); NEUT % 72.1 % (42.8-82.8); PLATELET COUNT 219 K/MM3 (134-434); RBC 4.31 M/mm3 (3.60-5.2); RDW 15.6 % (11.6-15.6); WHITE BLOOD COUNT 8.8 K/mm3 (4.0-10.0)
[2020-09-26] MEDS: FERROUS SO4 325 MG TABLET (FP) PO SCH ×2 (09:35→17:13)
[2020-09-26] MEDS: PRENATAL VITAMINS W/ FOLIC ACID TABLET (FP) PO SCH (09:35)
[2020-09-26] MEDS ORDERED: BISACODYL 10 MG SUPP.RECT RC PRN (11:33)
[2020-09-26] MEDS: ACETAMINOPHEN 325 MG TABLET (FP) PO PRN ×2 (12:00→22:10)
[2020-09-26] MEDS: IBUPROFEN 600 MG TABLET (FP) PO PRN ×2 (12:01→22:09)
[2020-09-26] MEDS: SIMETHICONE 80 MG TAB.CHEW (FP) PO PRN (22:09)
[2020-09-27] MEDS: SIMETHICONE 80 MG TAB.CHEW (FP) PO PRN (09:02)
[2020-09-27] MEDS: FERROUS SO4 325 MG TABLET (FP) PO SCH (09:02)
[2020-09-27] MEDS: IBUPROFEN 600 MG TABLET (FP) PO PRN (09:02)
[2020-09-27] MEDS: PRENATAL VITAMINS W/ FOLIC ACID TABLET (FP) PO SCH (09:02)
[2020-09-27] MEDS: ACETAMINOPHEN 325 MG TABLET (FP) PO PRN (09:03)
[2020-09-27 11:54] VITALS: BP 124/68; PULSE 77; TEMP 98.1
== END 2020-09-27 14:30 | disposition home or self-care (01) | DRG 540 ==
LOC: JLDR 07:10 → J3W 12:55
PROVIDERS: ADMIT Obstetrics & Gynecology; ATTEND Obstetrics & Gynecology
PROC: 10D00Z1 Extraction of Products of Conception, Low, Open Approach (ICD-10-PCS; principal; 2020-09-25)
DX: O34.219 Maternal care for unspecified type scar from previous cesarean delivery (principal); O24.429 Gestational diabetes mellitus in childbirth, unspecified control; Z3A.39 39 weeks gestation of pregnancy; Z37.0 Single live birth
CPT/HCPCS: 36415; 80048; 85025; 85610; 85730; 86780; 86850; 86900; 86901

== ENCOUNTER 2021-11-29 09:13 | Emergency (ER) | payer OTHER ==
[2021-11-29 09:26] VITALS: TEMP 97.4; BMI 36.4
[2021-11-29] MEDS ORDERED: FAMOTIDINE 20 MG/50 ML IVPB 20 MG/50 ML MG IVPB ONE ×2 (09:56→10:07)
[2021-11-29] MEDS ORDERED: MAG HYDROX/AL HYDROX/SIMETH 30 ML UNIT-DOSE CUP PO ONE (09:57)
[2021-11-29] MEDS ORDERED: ONDANSETRON 4 MG/2 ML VIAL IVPUSH ONE (09:57)
[2021-11-29] MEDS ORDERED: ACETAMINOPHEN 1000 MG/100 ML BAG IVPB ONE (09:57)
[2021-11-29] MEDS ORDERED: ONDANSETRON 4 MG/2 ML VIAL ONE (10:07)
[2021-11-29] MEDS ORDERED: MAG HYDROX/AL HYDROX/SIMETH 30 ML UNIT-DOSE CUP ONE (10:07)
[2021-11-29] MEDS ORDERED: ACETAMINOPHEN INJECTION 100 ML IVPB ONE (10:08)
[2021-11-29] MEDS ORDERED: LACTATED RINGERS SOLUTION 1000 ML INFUS.BAG IV ONE (11:33)
[2021-11-29 11:36] LABS: BASO % 0.4 % (0-2.0); EOS % 0.1 % (0-4.5); HEMATOCRIT 39.9 % (32.4-45.2); HEMOGLOBIN 13.1 GM/dL (10.7-15.3); LYMPH % 17.3 % (8-40); MCH 26.7 pg (25.7-33.7); MCHC 32.7 g/dl (32.0-36.0); MEAN CELL VOLUME 81.7 fl (80-96); MEAN PLT VOLUME 9.6 fl (7.5-11.1); NEUT % 78.2 % (42.8-82.8); PLATELET COUNT 288 10^3/uL (134-434); RBC 4.89 M/mm3 (3.60-5.2); RDW 14.3 % (11.6-15.6); WHITE BLOOD COUNT 7.7 K/mm3 (4.0-10.0)
[2021-11-29 12:05] LABS: ALBUMIN 4.1 g/dl (3.4-5.0); BLOOD UREA NITROGEN 8.4 mg/dL (7-18); CALCIUM 9.3 mg/dL (8.5-10.1); MAGNESIUM 2.3 mg/dL (1.8-2.4)
[2021-11-29 12:09] LABS: BILIRUBIN,TOTAL 0.6 mg/dL (0.2-1); CREATININE 0.9 mg/dL (0.55-1.3); PHOSPHOROUS 4.1 mg/dL (2.5-4.9); TOT PROT 7.8 g/dl (6.4-8.2)
[2021-11-29 13:32] LABS: HCG,QUALITATIVE URINE Negative
[2021-11-29 13:38] LABS: PH,URINE 7.5 (5.0-8.0); URINE APPEARANCE Clear; URINE BILIRUBIN Negative (NEGATIVE); URINE COLOR Yellow; URINE GLUCOSE (UA) Negative (NEGATIVE); URINE KETONE Negative (NEGATIVE); URINE LEUK ESTERASE Negative (NEGATIVE); URINE NITRITE Negative (NEGATIVE); URINE PROTEIN Negative (NEGATIVE)
[2021-11-29 14:01] LABS: EPI CELLS 22.5 /uL (0-25.1); HYALINE CASTS 0.51 /uL (0-3.1); URINE BACTERIA 119.3 /uL (0-1359); URINE RBC 7.6 /uL (0-23.9); URINE WBC 8.7 /uL (0-25.8)
[2021-11-29 14:21] VITALS: BP 129/79; PULSE 86
== END 2021-11-29 14:21 | disposition home or self-care (01) ==
LOC: JER 09:13
PROC: 3E033GC Introduction of Other Therapeutic Substance into Peripheral Vein, Percutaneous Approach (ICD-10-PCS; principal; 2021-11-29)
DX: R11.2 Nausea with vomiting, unspecified (principal)
CPT/HCPCS: 36415; 71046-TC-FY; 80053; 81003; 83690; 83735; 84100; 84703; 85025; 87086; 93005; 93010; 99285-25

== ENCOUNTER 2023-01-31 09:28 | Emergency (ER) | payer OTHER ==
[2023-01-31 09:36] VITALS: RESP 18; TEMP 98.4; BMI 32.1
[2023-01-31] MEDS ORDERED: ONDANSETRON 4 MG/2 ML VIAL IVPUSH ONE (10:55)
[2023-01-31] MEDS ORDERED: ACETAMINOPHEN 1000 MG/100 ML BAG IVPB ONE (11:00)
[2023-01-31] MEDS ORDERED: LACTATED RINGERS SOLUTION 1000 ML INFUS.BAG IV ONE (11:03)
[2023-01-31] MEDS ORDERED: FAMOTIDINE 20 MG/50 ML IVPB 20 MG/50 ML MG IVPB ONE ×2 (11:04→11:24)
[2023-01-31] MEDS ORDERED: ACETAMINOPHEN INJECTION 100 ML IVPB ONE (11:08)
[2023-01-31] MEDS ORDERED: ONDANSETRON 4 MG/2 ML VIAL ONE (11:08)
[2023-01-31 11:29] LABS: BASO % 0.7 % (0-2.0); EOS % 0.1 % (0-4.5); HEMATOCRIT 40.7 % (32.4-45.2); HEMOGLOBIN 13.4 GM/dL (10.7-15.3); LYMPH % 12.8 % (8-40); MCHC 33.1 g/dl (32.0-36.0); MEAN CELL VOLUME 81.7 fl (80-96); MEAN PLT VOLUME 9.3 fl (7.5-11.1); MONO % 2.4 % (3.8-10.2); PLATELET COUNT 305 10^3/uL (134-434); RBC 4.98 M/mm3 (3.60-5.2); RDW 14.2 % (11.6-15.6); WHITE BLOOD COUNT 8.7 K/mm3 (4.0-10.0)
[2023-01-31 11:48] LABS: POTASSIUM 4.1 mmol/L (3.5-5.1)
[2023-01-31 11:50] LABS: BLOOD UREA NITROGEN 12.6 mg/dL (7-18)
[2023-01-31 11:51] LABS: CALCIUM 9.6 mg/dL (8.5-10.1)
[2023-01-31 11:54] LABS: CREATININE 0.9 mg/dL (0.55-1.3)
[2023-01-31 11:56] LABS: BILIRUBIN,TOTAL 0.5 mg/dL (0.2-1); TOT PROT 7.8 g/dl (6.4-8.2)
[2023-01-31] MEDS ORDERED: MAG HYDROX/AL HYDROX/SIMETH 30 ML UNIT-DOSE CUP PO ONE (12:31)
[2023-01-31] MEDS ORDERED: MAG HYDROX/AL HYDROX/SIMETH 30 ML UNIT-DOSE CUP ONE (13:21)
[2023-01-31 13:24] VITALS: BP 112/70; PULSE 68
== END 2023-01-31 15:17 | disposition home or self-care (01) ==
LOC: JER 09:28
PROC: 3E033GC Introduction of Other Therapeutic Substance into Peripheral Vein, Percutaneous Approach (ICD-10-PCS; principal; 2023-01-31)
PROC: 3E033GC Introduction of Other Therapeutic Substance into Peripheral Vein, Percutaneous Approach (ICD-10-PCS; 2023-01-31)
PROC: 3E033GC Introduction of Other Therapeutic Substance into Peripheral Vein, Percutaneous Approach (ICD-10-PCS; 2023-01-31)
DX: R11.2 Nausea with vomiting, unspecified (principal); R10.13 Epigastric pain; R19.7 Diarrhea, unspecified
CPT/HCPCS: 36415; 80053; 83690; 84703; 85025; 99284-25

== ENCOUNTER 2024-03-25 17:07 | Emergency (ER) | payer OTHER ==
[2024-03-25 17:14] VITALS: BP 108/74; PULSE 85; RESP 16; TEMP 98.3; BMI 36.2
== END 2024-03-25 18:15 | disposition home or self-care (01) ==
LOC: JERFT 17:07
DX: M72.2 Plantar fascial fibromatosis (principal)
CPT/HCPCS: 99283-25

== ENCOUNTER 2024-10-28 01:02 | Emergency (ER) | payer OTHER ==
[2024-10-28 01:07] VITALS: BMI 35.9
[2024-10-28] MEDS ORDERED: MAG HYDROX/AL HYDROX/SIMETH 30 ML UNIT-DOSE CUP ONE (01:44)
[2024-10-28] MEDS: MAG HYDROX/AL HYDROX/SIMETH -MYLANTA- ORAL SUSPENSION PO ONE (01:46)
[2024-10-28 03:09] VITALS: RESP 18; TEMP 97.8
[2024-10-28 03:19] LABS: BASO % 0.5 % (0-2.0); EOS % 0.5 % (0-4.5); HEMATOCRIT 31.5 % (32.4-45.2); HEMOGLOBIN 10.3 GM/dL (10.7-15.3); LYMPH % 16.7 % (8-40); MCH 25.1 pg (25.7-33.7); MCHC 32.7 g/dl (32.0-36.0); MEAN CELL VOLUME 76.6 fl (80-96); MEAN PLT VOLUME 8.5 fl (7.5-11.1); MONO % 7.1 % (3.8-10.2); NEUT % 75.2 % (42.8-82.8); PLATELET COUNT 239 10^3/uL (134-434); RBC 4.11 M/mm3 (3.60-5.2); RDW 15.2 % (11.6-15.6); WHITE BLOOD COUNT 9.7 K/mm3 (4.0-10.0)
[2024-10-28 04:00] LABS: POTASSIUM 3.3 mmol/L (3.5-5.1)
[2024-10-28 04:03] LABS: CALCIUM 8.6 mg/dL (8.5-10.1)
[2024-10-28 04:04] LABS: ALBUMIN 2.6 g/dl (3.4-5.0)
[2024-10-28 04:07] LABS: CREATININE 0.6 mg/dL (0.55-1.3)
[2024-10-28 04:08] LABS: TOT PROT 6.4 g/dl (6.4-8.2)
[2024-10-28 04:12] LABS: BILIRUBIN,TOTAL 0.4 mg/dL (0.2-1)
[2024-10-28] MEDS: CITRIC ACID/SODIUM CITRATE 30 ML UNIT-DOSE CUP PO ONE (04:20)
[2024-10-28] MEDS ORDERED: ACETAMINOPHEN 325 MG TABLET (FP) ONE (05:01)
[2024-10-28] MEDS: ACETAMINOPHEN 325 MG TABLET (FP) PO ONE (05:04)
[2024-10-28 05:46] VITALS: BP 111/71; PULSE 88
== END 2024-10-28 05:27 | disposition home or self-care (01) ==
LOC: JER 01:02
DX: O09.523 Supervision of elderly multigravida, third trimester (principal); O21.9 Vomiting of pregnancy, unspecified; O26.893 Other specified pregnancy related conditions, third trimester; R10.33 Periumbilical pain; R10.13 Epigastric pain; O99.613 Diseases of the digestive system complicating pregnancy, third trimester; K59.00 Constipation, unspecified; Z3A.28 28 weeks gestation of pregnancy
CPT/HCPCS: 36415; 80053; 85025; 99283-25